=== PATIENT | female | born 1940 | race Caucasian/White ===

== ENCOUNTER 2016-10-17 13:34 | Inpatient (IN) | payer MEDICARE ==
[~2016-10-17] VITALS: Ht 165.1 cm; Wt 74.4 kg
[~2016-10-17 13:34] MED LIST: AMLODIPINE BESYL5 MG PO; ANUSOL1 EACH R; ARTHRITIS MED PO; ASPIRIN81 M1 PO; ATIVAN1 MG PO; BRILINTA90 M1 PO; CLARITIN10 MG PO; D-1000 185 MG-11 TAB PO; DOXYCYCLINE HY100 M5 PO; FAMOTIDINE20 M1 PO; Flovent 220 M220 MCG INH; LIPITOR40 MG PO; LISINOPRIL10 MG PO; LISINOPRIL2.5 MG PO; MECLIZINE HCL25 M2 PO; MEDROL DOSEPAK4 MG PO; MELOXICAM7.5 MG PO; NEXIUM20 MG PO; NITROLINGUAL NAS; OMEPRAZOLE20 M2 PO; OXYBUTYNIN CHLOR5 M1 PO; PEPCID AC10 M1 PO; PEPCID20 MG PO; PHARMASSURE FO0.4 MG PO; PRILOSEC20 M1 PO; ROBITUSSIN; THERA TABS1 TAB PO; TOPROL XL25 MG PO; TRAMADOL HCL50 MG PO; TYLENOL COLD &1 PDR; VENTOLIN H0.09 MG/AC INH; ZOFRAN ODT4 MG PO
[2016-10-17 13:39] VITALS: BP 195/61
[2016-10-17] MEDS ORDERED: OMEPRAZOLE D/R20 MG PO (13:43)
[2016-10-17 14:24] VITALS: BP 157/70
[2016-10-17 14:25] LABS: BASO # 0.1 10*3/uL (0.0-0.1); BASO % 0.8 % (0.0-1.0); EOS # 0.1 10*3/uL (0.0-0.4); EOS % 1.8 % (1.0-4.0); HEMOGLOBIN 12.5 g/dl (12.0-16.0); LYMPH # 1.8 10*3/uL (1.3-4.4); LYMPH % 29.7 % (27.0-41.0); MEAN CELL VOLUME 90.9 fl (81.0-99.0); MEAN CORPUSCULAR HGB 29.9 pg (27.0-31.0); MEAN CORPUSCULAR HGB CONC 32.9 g/dl (33.0-37.0); MEAN PLATELET VOLUME 10.2 fl (9.6-12.3); MONO # 0.5 10*3/uL (0.1-1.0); MONO % 8.1 % (3.0-9.0); NEUT # 3.6 10*3/uL (2.3-7.9); NEUT % 59.4 % (47.0-73.0); PLATELET COUNT AUTOMATED 251 10*3/uL (130-400); RED BLOOD COUNT 4.18 10*6/uL (4.10-5.10); RED CELL DISTRI WIDTH 13.9 % (0-14.5)
[2016-10-17 14:41] LABS: ALBUMIN 3.4 gm/dl (3.1-4.5); ALKALINE PHOSPHATASE 213 U/L (45-117); BILIRUBIN, TOTAL 0.4 mg/dl (0.2-1.0); BUN 10 mg/dl (7-24); CARBON DIOXIDE 27 mmol/L (21-32); CHLORIDE 108 mmol/L (98-107); EST GLOM FILT AFRICAN AMERICAN > 60 ml/min; GLUCOSE 100 mg/dL (65-99); POTASSIUM 4.1 mmol/L (3.5-5.1); SGOT/AST 20 IU/L (3-35); SGPT/ALT 16 U/L (12-78); SODIUM 146 mmol/L (136-145); TOTAL PROTEIN 6.8 gm/dL (6.4-8.2)
[2016-10-17 14:42] LABS: TROPONIN I < 0.015 ng/ml (<0.045)
[2016-10-17 14:55] VITALS: BP 152/73
[2016-10-17 15:05] LABS: PROTHROMBIN TIME 10.9 SECONDS (9.0-12.4)
[2016-10-17 16:21] LABS: LA>2 REFLEX 2 HR DRAW NOW
[2016-10-17 19:00] LABS: CKMB 1.2 ng/ml (0.5-3.6); CPK 60 U/L (26-192)
[2016-10-17 19:03] LABS: TROPONIN I < 0.015 ng/ml (<0.045)
[2016-10-17 20:00] VITALS: BP 133/54
[2016-10-18] VITALS: BP 143/54
[2016-10-18 00:31] LABS: CKMB 0.9 ng/ml (0.5-3.6); CPK 58 U/L (26-192)
[2016-10-18 00:33] LABS: TROPONIN I < 0.015 ng/ml (<0.045)
[2016-10-18 06:14] LABS: BASO # 0.1 10*3/uL (0.0-0.1); BASO % 0.8 % (0.0-1.0); EOS # 0.2 10*3/uL (0.0-0.4); EOS % 2.6 % (1.0-4.0); HEMATOCRIT 34.7 % (37.0-47.0); HEMOGLOBIN 11.3 g/dl (12.0-16.0); LYMPH # 1.8 10*3/uL (1.3-4.4); LYMPH % 29.5 % (27.0-41.0); MEAN CELL VOLUME 90.8 fl (81.0-99.0); MEAN CORPUSCULAR HGB 29.6 pg (27.0-31.0); MEAN CORPUSCULAR HGB CONC 32.6 g/dl (33.0-37.0); MEAN PLATELET VOLUME 9.7 fl (9.6-12.3); MONO # 0.5 10*3/uL (0.1-1.0); MONO % 8.5 % (3.0-9.0); NEUT # 3.7 10*3/uL (2.3-7.9); NEUT % 58.4 % (47.0-73.0); PLATELET COUNT AUTOMATED 219 10*3/uL (130-400); RED BLOOD COUNT 3.82 10*6/uL (4.10-5.10); RED CELL DISTRI WIDTH 13.9 % (0-14.5); WHITE BLOOD COUNT 6.2 10*3/uL (4.8-10.8)
[2016-10-18 06:26] LABS: CPK 55 U/L (26-192)
[2016-10-18 06:39] LABS: TROPONIN I < 0.015 ng/ml (<0.045)
[2016-10-18 06:44] LABS: ALBUMIN 2.9 gm/dl (3.1-4.5); BILIRUBIN, TOTAL 0.4 mg/dl (0.2-1.0); BUN 7 mg/dl (7-24); CARBON DIOXIDE 28 mmol/L (21-32); CHLORIDE 113 mmol/L (98-107); CHOLESTEROL 140 mg/dL (<200); EST GLOM FILT AFRICAN AMERICAN > 60 ml/min; GLUCOSE 81 mg/dL (65-99); PHOSPHOROUS 2.8 mg/dL (2.5-4.9); SGOT/AST 16 IU/L (3-35); SGPT/ALT 16 U/L (12-78); SODIUM 146 mmol/L (136-145); TRIGLYCERIDES 95 mg/dl (<150); VLDL CHOLESTEROL 19 mg/dL (6-40)
[2016-10-18 06:51] LABS: ALKALINE PHOSPHATASE 182 U/L (45-117); FREE T4 1.16 ng/dl (0.76-1.46); HDL CHOLESTEROL 45 mg/dl (40-60); LDL CHOLESTEROL 76 mg/dL (9-159); THYROID STIM HORMONE (HS) 0.904 uIU/ml (0.358-4.75); TOTAL PROTEIN 5.8 gm/dL (6.4-8.2)
[2016-10-18 07:35] LABS: FOLIC ACID 19.85 ng/mL (>5.38); VITAMIN D, 25-HYDROXY 35.6 ng/mL (30-100)
[2016-10-18 08:00] VITALS: BP 176/60
[2016-10-18] MEDS ORDERED: VIBRAMYCIN100 MG PO (10:30)
== END 2016-10-18 12:22 | disposition home or self-care (01) | DRG 871 ==
LOC: ED 13:34 → EDHOLD 15:15 → 4E 15:32
PROVIDERS: Emergency Medicine; Internal Medicine
DX: A41.9 Sepsis, unspecified organism (principal); J18.9 Pneumonia, unspecified organism; E44.0 Moderate protein-calorie malnutrition; E87.0 Hyperosmolality and hypernatremia; D64.9 Anemia, unspecified; I10 Essential (primary) hypertension; F41.9 Anxiety disorder, unspecified; I25.10 Atherosclerotic heart disease of native coronary artery without angina pectoris; F32.9 Major depressive disorder, single episode, unspecified; E78.5 Hyperlipidemia, unspecified; I25.2 Old myocardial infarction; Z95.5 Presence of coronary angioplasty implant and graft; Z87.891 Personal history of nicotine dependence; Z80.1 Family history of malignant neoplasm of trachea, bronchus and lung; Z88.1 Allergy status to other antibiotic agents; Z88.2 Allergy status to sulfonamides; Z68.27 Body mass index [BMI] 27.0-27.9, adult

== ENCOUNTER 2017-04-11 17:41 | Inpatient (IN) | payer MEDICARE ==
[~2017-04-11] VITALS: Ht 165.1 cm; Wt 72.3 kg
--- NOTE | ~2017-04-11 | CON ---
[place], [place] REPORT OF CONSULTATION NAME: ANTONETTE NAVARRETE UNIT #: [id number] ROOM: 411 DOCTOR: DOMO VERDUZCO MD BIRTHDATE: [birth year] DOS: 04/12/2017 HISTORY OF PRESENT ILLNESS: This is a 76-year-old -[place] woman with a history of coronary artery disease. She had presented with unstable angina in April of last year and 2 or 3 stents were deployed successfully. LV function was fine. She also has COPD and depression, cataract and also had acute vertigo and was admitted to this hospital in September. She has never had had a stroke, heart failure, diabetes mellitus, cancer or kidney problems. She quit smoking last year. She was doing fine yesterday. Later in the day, she developed dizziness, spinning sensation, as if she was going around and at that time, she developed quite a bit of nausea and all was at the verge of vomiting. She had some ringing in the ears and also became clammy. She sat down and symptoms abated. When she started moving around, they came back and she decided to come to the Emergency Department for further evaluation. She had pretty much the same symptoms in September when she also vomited. At that time, Dr. Tang had prescribed meclizine to be used as needed, which she did not use yesterday. She has not had any chest pain, palpitations, any breathing difficulty, swelling of the lower extremities or pain in the legs. She does not smoke now. She lives with her at home and is a reasonably active lady. HOME MEDICATIONS: Include sublingual nitroglycerin p.r.n., which she has not used, aspirin 81 mg daily, clopidogrel 75 mg daily, Atrovent mg at bedtime, lisinopril 2.5 mg daily, lorazepam 1 mg half a tablet q. 8 h. p.r.n. and omeprazole 20 mg daily and oxybutynin 5 mg b.i.d. PHYSICAL EXAMINATION: GENERAL: The patient is very pleasant, alert, and oriented. She is afebrile. There is no anemia, cyanosis, or jaundice. There is no thyromegaly or finger clubbing. VITAL SIGNS: Pulse is 50 and regular, blood pressure 144/50. NECK: JVP is normal. AJR is negative. There are faint bruits in the neck. CARDIOVASCULAR: Cardiac auscultation is unremarkable. There is no cardiomegaly. EXTREMITIES: Pedal pulses are palpable, but seems to be of smaller volume. No edema in the lower extremities. RESPIRATORY: She is not tachypneic. Percussion note is normal. Auscultation revealed modestly reduced breath sounds bilaterally with a few adventitious sounds over the lower two-thirds of lung smith. ABDOMEN: Supple, nontender. No bruits or pulsatile masses. DIAGNOSTIC STUDIES: An ECG showed sinus bradycardia, rate at 48 beats per minute. LABORATORY STUDIES: Essentially unremarkable with normal troponin I levels. IMPRESSION: 1. Acute vertigo with nausea and ringing in the ears. This has pretty much [place], [place] REPORT OF CONSULTATION NAME: ANTONETTE NAVARRETE UNIT #: [id number] ROOM: 411 DOCTOR: DOMO VERDUZCO MD BIRTHDATE: [birth year] resolved. This is her second episode and I have asked her to take meclizine as soon as she develops symptoms and that she does not have to come back to the hospital for similar symptoms unless they become somewhat unbearable. Of course, if she has any cardiac symptoms, she should show up in the Emergency Department. 2. Coronary artery disease. This is asymptomatic and requires no further workup. I discussed this with the resident. Sinus bradycardia is present and that she is not on any medications to affect her heart rate. It is asymptomatic. It is highly likely that her sinoatrial node is somewhat diseased. I thank you for this consult. DOMO VERDUZCO MD CM:CONSTR:REPORT OF CONSULTATION 1217 04/13/17 0658 interface
[~2017-04-11 17:41] MED LIST changes: +OMEPRAZOLE D/R20 MG PO; +VIBRAMYCIN100 MG PO
[2017-04-11 17:48] VITALS: BP 177/62
[2017-04-11 18:19] LABS: BASO % 0.6 % (0.0-1.0); EOS # 0.2 10*3/uL (0.0-0.4); EOS % 2.4 % (1.0-4.0); HEMATOCRIT 39.7 % (37.0-47.0); HEMOGLOBIN 12.5 g/dl (12.0-16.0); LYMPH # 2.7 10*3/uL (1.3-4.4); MEAN CELL VOLUME 88.6 fl (81.0-99.0); MEAN CORPUSCULAR HGB 27.9 pg (27.0-31.0); MEAN CORPUSCULAR HGB CONC 31.5 g/dl (33.0-37.0); MEAN PLATELET VOLUME 9.7 fl (9.6-12.3); MONO # 0.6 10*3/uL (0.1-1.0); MONO % 8.7 % (3.0-9.0); NEUT # 3.5 10*3/uL (2.3-7.9); NEUT % 49.9 % (47.0-73.0); PLATELET COUNT AUTOMATED 258 10*3/uL (130-400); RED BLOOD COUNT 4.48 10*6/uL (4.10-5.10); RED CELL DISTRI WIDTH 14.4 % (0-14.5)
[2017-04-11 18:29] LABS: ACT PARTIAL THROMBO TIME 24.1 SECONDS (20.8-31.5)
[2017-04-11 18:30] VITALS: BP 178/72
[2017-04-11 18:33] LABS: ALBUMIN 3.2 gm/dl (3.1-4.5); ALKALINE PHOSPHATASE 229 U/L (45-117); BUN 11 mg/dl (7-24); CHLORIDE 110 mmol/L (98-107); CREATININE 0.73 mg/dL (0.55-1.02); LIPASE 174 U/L (73-393); MAGNESIUM 2.3 mg/dL (1.5-2.1); POTASSIUM 4.2 mmol/L (3.5-5.1); SGOT/AST 14 IU/L (3-35); SGPT/ALT 15 U/L (12-78); SODIUM 145 mmol/L (136-145); TOTAL PROTEIN 6.9 gm/dL (6.4-8.2)
[2017-04-11 18:38] LABS: TROPONIN I < 0.015 ng/ml (<0.045)
[2017-04-11 18:46] VITALS: BP 182/74
[2017-04-11 18:48] LABS: BILIRUBIN NEGATIVE (NEGATIVE); BLOOD NEGATIVE (NEGATIVE); CLARITY CLEAR (CLEAR); COLOR YELLOW (YELLOW); GLUCOSE NEGATIVE (NEGATIVE); KETONE NEGATIVE (NEGATIVE); LEUKO ESTERASE TRACE (NEGATIVE); NITRITE NEGATIVE (NEGATIVE); SPECIFIC GRAVITY <= 1.005 (1.005-1.030); UROBILINOGEN 0.2 E.U./dl (0.2-1.0)
[2017-04-11 19:03] LABS: BACTERIA TRACE; EPITHELIAL CELLS 25-30; RBC 0-2 rbc/hpf (0-2); WBC 0-2 wbc/hpf (0-5)
[2017-04-11 19:27] VITALS: BP 129/53
--- NOTE | 2017-04-11 20:50 | NUR ---
report given to andrés
[2017-04-11 21:00] VITALS: BP 169/55
--- NOTE | 2017-04-11 21:00 | NUR ---
A 76 YO FEMALE, admitted to , under the services of LAURA Bacon DO with a diagnosis of DIZZINESS, BRADYCARDIA. Chief complaint is DIZZINESS. Patient arrived via ambulatory from ER. Monitor applied. Initial assessment completed. Vital signs taken and recorded. LAURA BACON DO notified of admission to the unit. Orders received. See assessment for past medical history, medications and allergies. Patient and/or family oriented to unit. [facility] visitation policy reviewed. Clothing/patient valuable form completed. MEDLIST REVIEWED AND UPDATED SCOOBY RODRIGUEZ
--- NOTE | 2017-04-11 21:35 | NUR ---
DR. MTZ NOTIFIED OF NEW ADMIT AND MED REC UPDATED. N.O. RCVD FOR ECHO IN AM AND REGULAR DIET.
--- NOTE | 2017-04-11 21:42 | NUR ---
DR. VERDUZCO NOTIFIED OF CONSULT. HE WILL SEE PT IN THE MORNING.
[2017-04-12] VITALS: BP 161/61
[2017-04-12 03:14] LABS: BASO % 0.6 % (0.0-1.0); EOS # 0.1 10*3/uL (0.0-0.4); HEMATOCRIT 34.6 % (37.0-47.0); LYMPH # 2.7 10*3/uL (1.3-4.4); LYMPH % 38.2 % (27.0-41.0); MEAN CELL VOLUME 88.9 fl (81.0-99.0); MEAN CORPUSCULAR HGB 28.3 pg (27.0-31.0); MEAN CORPUSCULAR HGB CONC 31.8 g/dl (33.0-37.0); MEAN PLATELET VOLUME 9.4 fl (9.6-12.3); MONO # 0.5 10*3/uL (0.1-1.0); MONO % 7.1 % (3.0-9.0); NEUT # 3.6 10*3/uL (2.3-7.9); NEUT % 51.8 % (47.0-73.0); PLATELET COUNT AUTOMATED 206 10*3/uL (130-400); RED BLOOD COUNT 3.89 10*6/uL (4.10-5.10); RED CELL DISTRI WIDTH 14.5 % (0-14.5)
[2017-04-12 03:33] LABS: ALBUMIN 2.6 gm/dl (3.1-4.5); ALKALINE PHOSPHATASE 188 U/L (45-117); BUN 10 mg/dl (7-24); CHLORIDE 112 mmol/L (98-107); CHOLESTEROL 110 mg/dL (<200); CREATININE 0.74 mg/dL (0.55-1.02); HDL CHOLESTEROL 36 mg/dl (40-60); LDL CHOLESTEROL 53 mg/dL (9-159); MAGNESIUM 2.2 mg/dL (1.5-2.1); PHOSPHOROUS 3.7 mg/dL (2.5-4.9); POTASSIUM 4.3 mmol/L (3.5-5.1); SGOT/AST 10 IU/L (3-35); SGPT/ALT 13 U/L (12-78); SODIUM 147 mmol/L (136-145); TOTAL PROTEIN 5.6 gm/dL (6.4-8.2); TRIGLYCERIDES 105 mg/dl (<150); VLDL CHOLESTEROL 21 mg/dL (6-40)
[2017-04-12 03:34] LABS: FREE T4 1.04 ng/dl (0.76-1.46)
[2017-04-12 03:39] LABS: THYROID STIM HORMONE (HS) 0.676 uIU/ml (0.358-4.75)
--- NOTE | 2017-04-12 03:41 | NUR ---
DR. MTZ NOTIFIED OF PT NEED FOR PAIN MED. N.O. RCVD FOR TYLENOL 500 MG PO EVERY 4 HOURS PRN FOR PAIN. NOTIFIED OF HR SUSTAINING IN 40'S. IVF INFUSING W/OUT DIFF.
[2017-04-12 03:49] LABS: VITAMIN D, 25-HYDROXY 34.7 ng/mL (30-100)
--- NOTE | 2017-04-12 05:00 | NUR ---
PT STATES THAT TYLENOL WAS EFFECTIVE FOR PAIN RELIEF FOR A SHORT WHILE. STATES THAT H/A IS STARTING TO RETURN.
[2017-04-12 08:00] VITALS: BP 144/50; BP 170/70
--- NOTE | 2017-04-12 08:30 | NUR ---
Etcher Enameling in to talk to patient. Patient states lives at HOME with HER . There are 0 steps in the home. Physician: DR STEWART Pharmacy: [facility] health services: NONE Patient's level of ADLs: INDEPENDENT Patient has working utilities: YES DME: NONE Follow-up physician's appointment after d/c: WILL BE MADE PRIOR TO DC Does patient want to access PORTAL?: Discharge plan HOME. NELLY CANCINO DENIES ANY DC NEEDS
[2017-04-12] MEDS ORDERED: PLAVIX75 M1 PO (10:41)
[2017-04-12] MEDS ORDERED: OMEPRAZOLE D/R20 MG PO (10:41)
[2017-04-12 12:00] VITALS: BP 142/52
[2017-04-12] MEDS ORDERED: MECLIZINE HCL25 M2 PO (12:55)
--- NOTE | 2017-04-12 14:55 | NUR ---
[facility] Discharge instructions reviewed with patient/family. Patient receptive and verbalizes understanding. Follow-up care arranged. Written instructions given to patient/family. BRIAN LOMAS
== END 2017-04-12 14:55 | disposition home or self-care (01) | DRG 304 ==
LOC: ED 17:41 → EDHOLD 19:48 → 4E 19:48
PROVIDERS: Emergency Medicine; Hospitalist; ADMIT Internal Medicine
DX: I16.0 Hypertensive urgency (principal); E43 Unspecified severe protein-calorie malnutrition; E87.0 Hyperosmolality and hypernatremia; R42 Dizziness and giddiness; J44.9 Chronic obstructive pulmonary disease, unspecified; R00.1 Bradycardia, unspecified; D64.9 Anemia, unspecified; E78.5 Hyperlipidemia, unspecified; E66.3 Overweight; E87.8 Other disorders of electrolyte and fluid balance, not elsewhere classified; E83.41 Hypermagnesemia; R51 Headache; I25.10 Atherosclerotic heart disease of native coronary artery without angina pectoris; K21.9 Gastro-esophageal reflux disease without esophagitis; F41.9 Anxiety disorder, unspecified; F32.9 Major depressive disorder, single episode, unspecified; Z87.891 Personal history of nicotine dependence; Z98.49 Cataract extraction status, unspecified eye; Z79.82 Long term (current) use of aspirin; Z95.5 Presence of coronary angioplasty implant and graft; Z79.899 Other long term (current) drug therapy; Z88.2 Allergy status to sulfonamides; Z88.1 Allergy status to other antibiotic agents; Z80.1 Family history of malignant neoplasm of trachea, bronchus and lung; Z82.49 Family history of ischemic heart disease and other diseases of the circulatory system; Z68.26 Body mass index [BMI] 26.0-26.9, adult

== ENCOUNTER → 2017-05-31 | Outpatient (CLI) | payer MEDICARE ==
[~2017-05-31] MED LIST changes: +PLAVIX75 M1 PO
== END | disposition home or self-care (01) ==
LOC: RAD 10:25
DX: M19.012 Primary osteoarthritis, left shoulder (principal); G89.29 Other chronic pain

== ENCOUNTER → 2017-11-17 | Outpatient (CLI) | payer MEDICARE | END | disposition home or self-care (01) | LOC: RAD 14:10 | DX: J90 Pleural effusion, not elsewhere classified (principal); R09.89 Other specified symptoms and signs involving the circulatory and respiratory systems ==

== ENCOUNTER → 2017-12-30 | Outpatient (CLI) | payer MEDICARE ==
[~2017-12-30] MED LIST changes: +LOTRISONE 0.05%45 GM T; +VISTARIL25 MG PO
== END | disposition home or self-care (01) ==
LOC: CT 10:00
DX: I10 Essential (primary) hypertension (principal); H53.8 Other visual disturbances; R42 Dizziness and giddiness; R11.0 Nausea

== ENCOUNTER → 2018-04-18 | Outpatient (CLI) | payer MEDICARE ==
[2018-04-18 13:41] LABS: BASO # 0.1 10*3/uL (0.0-0.1); BASO % 0.6 % (0.0-1.0); EOS # 0.3 10*3/uL (0.0-0.4); EOS % 3.3 % (1.0-4.0); HEMOGLOBIN 12.7 g/dl (12.0-16.0); LYMPH # 2.2 10*3/uL (1.3-4.4); LYMPH % 26.9 % (27.0-41.0); MEAN CELL VOLUME 91.3 fl (81.0-99.0); MEAN CORPUSCULAR HGB CONC 31.8 g/dl (33.0-37.0); MEAN PLATELET VOLUME 9.7 fl (9.6-12.3); MONO # 0.7 10*3/uL (0.1-1.0); MONO % 7.9 % (3.0-9.0); NEUT # 5.1 10*3/uL (2.3-7.9); NEUT % 60.9 % (47.0-73.0); PLATELET COUNT AUTOMATED 249 10*3/uL (130-400); RED BLOOD COUNT 4.38 10*6/uL (4.10-5.10); RED CELL DISTRI WIDTH 14.3 % (0-14.5); WHITE BLOOD COUNT 8.3 10*3/uL (4.8-10.8)
[2018-04-18 14:17] LABS: ALBUMIN 3.2 gm/dl (3.1-4.5); ALKALINE PHOSPHATASE 191 U/L (45-117); BUN 13 mg/dl (7-24); CHLORIDE 107 mmol/L (98-107); POTASSIUM 4.3 mmol/L (3.5-5.1); SGOT/AST 11 IU/L (3-35); SGPT/ALT 21 U/L (12-78); SODIUM 143 mmol/L (136-145); TOTAL PROTEIN 6.9 gm/dL (6.4-8.2)
[2018-04-18 14:23] LABS: THYROID STIM HORMONE (HS) 0.604 uIU/ml (0.358-4.75)
== END | disposition home or self-care (01) ==
LOC: LAB 13:03
PROVIDERS: Nurse Practitioner Family
DX: L29.9 Pruritus, unspecified (principal)

== ENCOUNTER → 2019-03-15 | Day surgery (SDC) | payer MEDICARE ==
[~2019-03-15] VITALS: Ht 165.1 cm; Wt 88.5 kg
[~2019-03-15] MED LIST changes: +VITAMIN C500 M4 PO; +VITAMIN D250 MCG PO
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
[2019-03-15 09:17] VITALS: BP 183/66
[2019-03-15 10:47] VITALS: BP 146/55
[2019-03-15 11:00] VITALS: BP 163/60
[2019-03-15 11:12] VITALS: BP 167/56
== END | disposition home or self-care (01) ==
LOC: SDC 03-10 11:00
DX: K63.5 Polyp of colon (principal); K62.5 Hemorrhage of anus and rectum; K62.89 Other specified diseases of anus and rectum; K57.30 Diverticulosis of large intestine without perforation or abscess without bleeding; E11.9 Type 2 diabetes mellitus without complications; I10 Essential (primary) hypertension; I25.10 Atherosclerotic heart disease of native coronary artery without angina pectoris; K21.9 Gastro-esophageal reflux disease without esophagitis; F41.9 Anxiety disorder, unspecified; M19.90 Unspecified osteoarthritis, unspecified site; E78.5 Hyperlipidemia, unspecified; I25.2 Old myocardial infarction; Z88.2 Allergy status to sulfonamides; Z98.890 Other specified postprocedural states; Z79.899 Other long term (current) drug therapy; Z88.8 Allergy status to other drugs, medicaments and biological substances; Z83.2 Family history of diseases of the blood and blood-forming organs and certain disorders involving the immune mechanism; Z82.49 Family history of ischemic heart disease and other diseases of the circulatory system

== ENCOUNTER → 2020-06-01 | Outpatient (CLI) | payer OTHER ==
[2020-06-01 09:17] LABS: BASO # 0.1 10*3/uL (0.0-0.1); BASO % 0.8 % (0.0-1.0); EOS # 0.4 10*3/uL (0.0-0.4); EOS % 4.9 % (1.0-4.0); HEMATOCRIT 42.8 % (37.0-47.0); LYMPH # 2.1 10*3/uL (1.3-4.4); LYMPH % 28.6 % (27.0-41.0); MEAN CELL VOLUME 90.3 fl (81.0-99.0); MEAN CORPUSCULAR HGB 27.8 pg (27.0-31.0); MEAN CORPUSCULAR HGB CONC 30.8 g/dl (33.0-37.0); MEAN PLATELET VOLUME 10.1 fl (9.6-12.3); MONO # 0.6 10*3/uL (0.1-1.0); MONO % 8.7 % (3.0-9.0); NEUT # 4.1 10*3/uL (2.3-7.9); NEUT % 56.7 % (47.0-73.0); PLATELET COUNT AUTOMATED 269 10*3/uL (130-400); RED BLOOD COUNT 4.74 10*6/uL (4.10-5.10); WHITE BLOOD COUNT 7.3 10*3/uL (4.8-10.8)
[2020-06-01 09:46] LABS: ALBUMIN 3.4 gm/dl (3.1-4.5); ALKALINE PHOSPHATASE 220 U/L (45-117); BUN 10 mg/dl (7-24); CHLORIDE 109 mmol/L (98-107); CHOLESTEROL 144 mg/dL (<200); CREATININE 0.73 mg/dL (0.55-1.02); HDL CHOLESTEROL 52 mg/dl (40-60); LDL CHOLESTEROL 69 mg/dL (9-159); POTASSIUM 4.1 mmol/L (3.5-5.1); SGOT/AST 17 IU/L (3-35); SGPT/ALT 18 U/L (12-78); SODIUM 144 mmol/L (136-145); TRIGLYCERIDES 113 mg/dl (<150); VLDL CHOLESTEROL 23 mg/dL (6-40)
[2020-06-01 10:45] LABS: VITAMIN D, 25-HYDROXY 35.8 ng/mL (30-100)
== END | disposition home or self-care (01) ==
LOC: LAB 08:15
PROVIDERS: ATTEND Student in an Organized Health Care Education/Training Program
DX: I25.10 Atherosclerotic heart disease of native coronary artery without angina pectoris (principal); E55.9 Vitamin D deficiency, unspecified; E78.5 Hyperlipidemia, unspecified; Z01.89 Encounter for other specified special examinations; Z79.899 Other long term (current) drug therapy

== ENCOUNTER → 2020-09-27 | Outpatient (CLI) | payer OTHER ==
[~2020-09-27] MED LIST changes: +CYCLOBENZAPRINE5 M3 PO
== END | disposition home or self-care (01) ==
LOC: RAD 10:06
PROVIDERS: ATTEND Family Medicine
DX: M47.816 Spondylosis without myelopathy or radiculopathy, lumbar region (principal); M51.36 Other intervertebral disc degeneration, lumbar region; M54.41 Lumbago with sciatica, right side; M54.42 Lumbago with sciatica, left side; G89.29 Other chronic pain

== ENCOUNTER → 2020-10-07 | Outpatient (CLI) | payer OTHER | END | disposition home or self-care (01) | LOC: RAD 10:00 | PROVIDERS: ATTEND Family Medicine | DX: Z13.820 Encounter for screening for osteoporosis (principal); M85.89 Other specified disorders of bone density and structure, multiple sites; M81.0 Age-related osteoporosis without current pathological fracture; Z78.0 Asymptomatic menopausal state ==

== ENCOUNTER 2020-10-14 12:02 | Emergency (ER) | payer OTHER ==
[~2020-10-14] VITALS: Ht 165.1 cm; Wt 77.1 kg
[~2020-10-14 12:02] MED LIST changes: -CYCLOBENZAPRINE5 M3 PO
[2020-10-14 13:07] LABS: BASO % 0.4 % (0.0-1.0); EOS # 0.2 10*3/uL (0.0-0.4); EOS % 1.8 % (1.0-4.0); HEMATOCRIT 39.7 % (37.0-47.0); LYMPH # 1.1 10*3/uL (1.3-4.4); LYMPH % 12.4 % (27.0-41.0); MEAN CELL VOLUME 89.6 fl (81.0-99.0); MEAN CORPUSCULAR HGB 28.4 pg (27.0-31.0); MEAN CORPUSCULAR HGB CONC 31.7 g/dl (33.0-37.0); MEAN PLATELET VOLUME 9.5 fl (9.6-12.3); MONO # 0.7 10*3/uL (0.1-1.0); MONO % 7.8 % (3.0-9.0); NEUT # 6.6 10*3/uL (2.3-7.9); NEUT % 77.1 % (47.0-73.0); PLATELET COUNT AUTOMATED 241 10*3/uL (130-400); RED BLOOD COUNT 4.43 10*6/uL (4.10-5.10); WHITE BLOOD COUNT 8.5 10*3/uL (4.8-10.8)
[2020-10-14 13:23] LABS: ALBUMIN 3.1 gm/dl (3.1-4.5); ALKALINE PHOSPHATASE 230 U/L (45-117); BUN 13 mg/dl (7-24); CHLORIDE 109 mmol/L (98-107); CREATININE 0.84 mg/dL (0.55-1.02); POTASSIUM 4.1 mmol/L (3.5-5.1); SGOT/AST 12 IU/L (3-35); SGPT/ALT 18 U/L (12-78); SODIUM 142 mmol/L (136-145); TOTAL PROTEIN 6.9 gm/dL (6.4-8.2)
[2020-10-14 13:26] LABS: TROPONIN I < 0.015 ng/ml (<0.045)
[2020-10-14 14:25] VITALS: BP 106/88
[2020-10-14 15:33] LABS: BILIRUBIN Negative (Negative); BLOOD Negative (Negative); CLARITY Clear (Clear); COLOR Yellow (Yellow); GLUCOSE Negative (Negative); KETONE Negative (Negative); LEUKO ESTERASE 1+ (Negative); NITRITE Negative (Negative); PH 5.5 (4.5-8.0)
[2020-10-14 16:02] LABS: BACTERIA TRACE; MUCOUS TRACE; RBC 0-2 rbc/hpf (0-2)
[2020-10-14] MEDS ORDERED: CYCLOBENZAPRINE5 M3 PO (16:21)
== END 2020-10-14 16:22 | disposition home or self-care (01) ==
LOC: ED 12:02
PROVIDERS: Nurse Practitioner
DX: M47.896 Other spondylosis, lumbar region (principal); M62.830 Muscle spasm of back; Z87.891 Personal history of nicotine dependence; Z95.5 Presence of coronary angioplasty implant and graft; Z98.890 Other specified postprocedural states; Z79.82 Long term (current) use of aspirin; Z79.899 Other long term (current) drug therapy; Z88.2 Allergy status to sulfonamides; Z88.1 Allergy status to other antibiotic agents

== ENCOUNTER 2020-11-09 07:47 | Inpatient (IN) | payer MEDICARE ==
[~2020-11-09] VITALS: Ht 165.1 cm; Wt 74.4 kg
[~2020-11-09 07:47] MED LIST changes: +CYCLOBENZAPRINE5 M3 PO; +XARE20MG PO; +ZESTRIL,PRINIVIL5 MG PO
[2020-11-09 07:54] VITALS: BP 120/48
[2020-11-09 08:39] LABS: BASO % 0.3 % (0.0-1.0); EOS # 0.3 10*3/uL (0.0-0.4); EOS % 2.5 % (1.0-4.0); HEMATOCRIT 32.5 % (37.0-47.0); LYMPH # 1.8 10*3/uL (1.3-4.4); LYMPH % 17.6 % (27.0-41.0); MEAN CORPUSCULAR HGB 28.2 pg (27.0-31.0); MEAN CORPUSCULAR HGB CONC 31.7 g/dl (33.0-37.0); MEAN PLATELET VOLUME 9.8 fl (9.6-12.3); MONO # 0.6 10*3/uL (0.1-1.0); MONO % 5.7 % (3.0-9.0); NEUT # 7.6 10*3/uL (2.3-7.9); NEUT % 73.6 % (47.0-73.0); PLATELET COUNT AUTOMATED 282 10*3/uL (130-400); RED BLOOD COUNT 3.65 10*6/uL (4.10-5.10); RED CELL DISTRI WIDTH 14.7 % (0-14.5); WHITE BLOOD COUNT 10.3 10*3/uL (4.8-10.8)
[2020-11-09 08:49] LABS: ACT PARTIAL THROMBO TIME 39.8 SECONDS (20.0-32.1); INTERNATIONAL NORM RATIO 1.3 (2.0-3.5)
[2020-11-09 08:55] LABS: ALBUMIN 2.9 gm/dl (3.1-4.5); ALKALINE PHOSPHATASE 192 U/L (45-117); BUN 22 mg/dl (7-24); CHLORIDE 111 mmol/L (98-107); CREATININE 0.68 mg/dL (0.55-1.02); SGOT/AST 11 IU/L (3-35); SGPT/ALT 16 U/L (12-78); SODIUM 143 mmol/L (136-145)
[2020-11-09 08:58] LABS: TROPONIN I < 0.015 ng/ml (<0.045)
[2020-11-09 09:19] VITALS: BP 123/75
[2020-11-09 11:00] VITALS: BP 160/58
[2020-11-09 12:00] VITALS: BP 154/51
[2020-11-09 16:00] VITALS: BP 135/63
[2020-11-09] MEDS ORDERED: COREG12.5 M1 PO (17:58)
[2020-11-09 20:00] VITALS: BP 127/49
[2020-11-10] VITALS: BP 146/47
[2020-11-10 05:54] LABS: ALBUMIN 2.5 gm/dl (3.1-4.5); BUN 17 mg/dl (7-24); CHLORIDE 113 mmol/L (98-107); CHOLESTEROL 113 mg/dL (<200); CREATININE 0.72 mg/dL (0.55-1.02); POTASSIUM 3.9 mmol/L (3.5-5.1); SGOT/AST 10 IU/L (3-35); SGPT/ALT 15 U/L (12-78); SODIUM 145 mmol/L (136-145)
[2020-11-10 05:55] LABS: ALKALINE PHOSPHATASE 172 U/L (45-117); TOTAL PROTEIN 5.4 gm/dL (6.4-8.2); TRIGLYCERIDES 138 mg/dl (<150)
[2020-11-10 06:02] LABS: FREE T4 1.04 ng/dl (0.76-1.46); LDL CHOLESTEROL 54 mg/dL (9-159); THYROID STIM HORMONE (HS) 0.611 uIU/ml (0.358-4.75)
[2020-11-10 06:10] LABS: BASO % 0.5 % (0.0-1.0); EOS # 0.2 10*3/uL (0.0-0.4); EOS % 3.5 % (1.0-4.0); HEMATOCRIT 27.9 % (37.0-47.0); LYMPH # 2.3 10*3/uL (1.3-4.4); LYMPH % 35.5 % (27.0-41.0); MEAN CELL VOLUME 90.3 fl (81.0-99.0); MEAN CORPUSCULAR HGB 28.2 pg (27.0-31.0); MEAN CORPUSCULAR HGB CONC 31.2 g/dl (33.0-37.0); MEAN PLATELET VOLUME 10.1 fl (9.6-12.3); MONO # 0.4 10*3/uL (0.1-1.0); MONO % 6.3 % (3.0-9.0); NEUT # 3.5 10*3/uL (2.3-7.9); NEUT % 53.9 % (47.0-73.0); PLATELET COUNT AUTOMATED 249 10*3/uL (130-400); RED BLOOD COUNT 3.09 10*6/uL (4.10-5.10); RED CELL DISTRI WIDTH 14.9 % (0-14.5); WHITE BLOOD COUNT 6.5 10*3/uL (4.8-10.8)
[2020-11-10 08:00] VITALS: BP 128/51
[2020-11-10 12:00] VITALS: BP 120/48
[2020-11-10 12:02] LABS: BASO % 0.6 % (0.0-1.0); EOS # 0.2 10*3/uL (0.0-0.4); EOS % 2.8 % (1.0-4.0); HEMATOCRIT 27.2 % (37.0-47.0); LYMPH # 2.3 10*3/uL (1.3-4.4); LYMPH % 33.7 % (27.0-41.0); MEAN CELL VOLUME 91.6 fl (81.0-99.0); MEAN CORPUSCULAR HGB 28.6 pg (27.0-31.0); MEAN CORPUSCULAR HGB CONC 31.3 g/dl (33.0-37.0); MEAN PLATELET VOLUME 9.7 fl (9.6-12.3); MONO # 0.6 10*3/uL (0.1-1.0); MONO % 9.4 % (3.0-9.0); NEUT # 3.6 10*3/uL (2.3-7.9); NEUT % 53.4 % (47.0-73.0); PLATELET COUNT AUTOMATED 253 10*3/uL (130-400); RED BLOOD COUNT 2.97 10*6/uL (4.10-5.10); RED CELL DISTRI WIDTH 14.8 % (0-14.5); WHITE BLOOD COUNT 6.7 10*3/uL (4.8-10.8)
[2020-11-10 16:00] VITALS: BP 135/50
[2020-11-10 20:00] VITALS: BP 113/43
[2020-11-11] VITALS: BP 130/48
[2020-11-11 06:16] LABS: BASO % 0.5 % (0.0-1.0); EOS # 0.2 10*3/uL (0.0-0.4); HEMATOCRIT 24.9 % (37.0-47.0); MEAN CELL VOLUME 91.5 fl (81.0-99.0); MEAN CORPUSCULAR HGB 28.3 pg (27.0-31.0); MEAN CORPUSCULAR HGB CONC 30.9 g/dl (33.0-37.0); MEAN PLATELET VOLUME 10.1 fl (9.6-12.3); MONO # 0.5 10*3/uL (0.1-1.0); MONO % 9.3 % (3.0-9.0); NEUT # 2.9 10*3/uL (2.3-7.9); PLATELET COUNT AUTOMATED 229 10*3/uL (130-400); RED BLOOD COUNT 2.72 10*6/uL (4.10-5.10); RED CELL DISTRI WIDTH 15.1 % (0-14.5); WHITE BLOOD COUNT 5.7 10*3/uL (4.8-10.8)
[2020-11-11 06:20] LABS: BUN 13 mg/dl (7-24); CHLORIDE 115 mmol/L (98-107); CREATININE 0.58 mg/dL (0.55-1.02); POTASSIUM 3.5 mmol/L (3.5-5.1); SODIUM 146 mmol/L (136-145)
[2020-11-11 07:56] VITALS: BP 140/44
[2020-11-11 12:00] VITALS: BP 117/48
[2020-11-11 16:00] VITALS: BP 137/52; BP 139/50
[2020-11-11 20:00] VITALS: BP 134/50
[2020-11-12] VITALS: BP 98/50
[2020-11-12 04:35] LABS: BUN 8 mg/dl (7-24); CHLORIDE 115 mmol/L (98-107); CREATININE 0.69 mg/dL (0.55-1.02); POTASSIUM 4.1 mmol/L (3.5-5.1); SODIUM 148 mmol/L (136-145)
[2020-11-12 05:53] LABS: BASO % 0.5 % (0.0-1.0); EOS # 0.3 10*3/uL (0.0-0.4); EOS % 4.9 % (1.0-4.0); HEMATOCRIT 24.4 % (37.0-47.0); LYMPH # 2.2 10*3/uL (1.3-4.4); MEAN CELL VOLUME 90.7 fl (81.0-99.0); MEAN CORPUSCULAR HGB 28.6 pg (27.0-31.0); MEAN CORPUSCULAR HGB CONC 31.6 g/dl (33.0-37.0); MEAN PLATELET VOLUME 10.2 fl (9.6-12.3); MONO # 0.6 10*3/uL (0.1-1.0); MONO % 10.2 % (3.0-9.0); NEUT # 2.6 10*3/uL (2.3-7.9); NEUT % 46.2 % (47.0-73.0); PLATELET COUNT AUTOMATED 239 10*3/uL (130-400); RED BLOOD COUNT 2.69 10*6/uL (4.10-5.10); RED CELL DISTRI WIDTH 15.1 % (0-14.5); WHITE BLOOD COUNT 5.7 10*3/uL (4.8-10.8)
[2020-11-12 06:47] VITALS: BP 154/48
[2020-11-12 08:00] VITALS: BP 120/42; BP 140/58
[2020-11-12 12:00] VITALS: BP 141/45
[2020-11-12 14:02] LABS: HEMATOCRIT 30.5 % (37.0-47.0)
[2020-11-12 16:00] VITALS: BP 166/59
[2020-11-12 20:00] VITALS: BP 159/49
[2020-11-13] VITALS (7 sets, daily range): BP systolic 122–168; BP diastolic 45–90
[2020-11-13 06:06] LABS: HEMATOCRIT 25.7 % (37.0-47.0)
[2020-11-14] VITALS: BP 146/55
[2020-11-14 05:19] LABS: BUN 11 mg/dl (7-24); CHLORIDE 113 mmol/L (98-107); POTASSIUM 3.4 mmol/L (3.5-5.1); SODIUM 144 mmol/L (136-145)
[2020-11-14 05:20] LABS: CREATININE 0.61 mg/dL (0.55-1.02)
[2020-11-14 06:17] LABS: BASO % 0.4 % (0.0-1.0); EOS # 0.3 10*3/uL (0.0-0.4); EOS % 3.5 % (1.0-4.0); HEMATOCRIT 25.2 % (37.0-47.0); LYMPH % 27.1 % (27.0-41.0); MEAN CELL VOLUME 91.3 fl (81.0-99.0); MEAN CORPUSCULAR HGB 28.6 pg (27.0-31.0); MEAN CORPUSCULAR HGB CONC 31.3 g/dl (33.0-37.0); MEAN PLATELET VOLUME 10.1 fl (9.6-12.3); MONO # 0.6 10*3/uL (0.1-1.0); MONO % 7.9 % (3.0-9.0); NEUT # 4.5 10*3/uL (2.3-7.9); NEUT % 60.8 % (47.0-73.0); PLATELET COUNT AUTOMATED 251 10*3/uL (130-400); RED BLOOD COUNT 2.76 10*6/uL (4.10-5.10); RED CELL DISTRI WIDTH 15.6 % (0-14.5); WHITE BLOOD COUNT 7.4 10*3/uL (4.8-10.8)
[2020-11-14 08:00] VITALS: BP 155/56
[2020-11-14 12:00] VITALS: BP 113/57
[2020-11-14] MEDS ORDERED: XARE20MG PO (13:30)
[2020-11-14] MEDS ORDERED: Carafate1 GM PO (13:30)
== END 2020-11-14 13:53 | disposition home or self-care (01) | DRG 378 ==
LOC: ED 07:47 → EDHOLD 09:07 → 4E 09:07
PROVIDERS: Emergency Medicine; Hospitalist; Internal Medicine; Internal Medicine Gastroenterology; ADMIT Internal Medicine; ATTEND Internal Medicine
PROC: 0DB78ZX Excision of Stomach, Pylorus, Via Natural or Artificial Opening Endoscopic, Diagnostic (ICD-10-PCS; principal; 2020-11-13)
PROC: 0DJD8ZZ Inspection of Lower Intestinal Tract, Via Natural or Artificial Opening Endoscopic (ICD-10-PCS; 2020-11-13)
DX: K29.71 Gastritis, unspecified, with bleeding (principal); E44.0 Moderate protein-calorie malnutrition; E87.0 Hyperosmolality and hypernatremia; K57.31 Diverticulosis of large intestine without perforation or abscess with bleeding; I25.10 Atherosclerotic heart disease of native coronary artery without angina pectoris; F41.9 Anxiety disorder, unspecified; F32.9 Major depressive disorder, single episode, unspecified; I10 Essential (primary) hypertension; E78.5 Hyperlipidemia, unspecified; D64.9 Anemia, unspecified; E83.41 Hypermagnesemia; I48.0 Paroxysmal atrial fibrillation; E78.00 Pure hypercholesterolemia, unspecified; E87.8 Other disorders of electrolyte and fluid balance, not elsewhere classified; R73.9 Hyperglycemia, unspecified; E87.6 Hypokalemia; Z88.1 Allergy status to other antibiotic agents; Z88.2 Allergy status to sulfonamides; I25.2 Old myocardial infarction; Z98.49 Cataract extraction status, unspecified eye; Z95.5 Presence of coronary angioplasty implant and graft; Z80.1 Family history of malignant neoplasm of trachea, bronchus and lung; Z80.51 Family history of malignant neoplasm of kidney; Z82.49 Family history of ischemic heart disease and other diseases of the circulatory system; Z68.27 Body mass index [BMI] 27.0-27.9, adult

== ENCOUNTER → 2020-12-05 | Outpatient (CLI) | payer OTHER ==
[~2020-12-05] MED LIST changes: +COREG12.5 M1 PO; +Carafate1 GM PO
[2020-12-05 15:58] LABS: BASO # 0.1 10*3/uL (0.0-0.1); BASO % 0.8 % (0.0-1.0); EOS # 0.3 10*3/uL (0.0-0.4); EOS % 3.1 % (1.0-4.0); HEMATOCRIT 34.2 % (37.0-47.0); LYMPH # 2.6 10*3/uL (1.3-4.4); LYMPH % 30.2 % (27.0-41.0); MEAN CELL VOLUME 94.5 fl (81.0-99.0); MEAN CORPUSCULAR HGB 26.8 pg (27.0-31.0); MEAN CORPUSCULAR HGB CONC 28.4 g/dl (33.0-37.0); MONO # 0.8 10*3/uL (0.1-1.0); MONO % 9.2 % (3.0-9.0); NEUT # 4.9 10*3/uL (2.3-7.9); NEUT % 56.4 % (47.0-73.0); PLATELET COUNT AUTOMATED 356 10*3/uL (130-400); RED BLOOD COUNT 3.62 10*6/uL (4.10-5.10); RED CELL DISTRI WIDTH 16.9 % (0-14.5); WHITE BLOOD COUNT 8.7 10*3/uL (4.8-10.8)
== END | disposition home or self-care (01) ==
LOC: RESCLI 00:23
PROVIDERS: Student in an Organized Health Care Education/Training Program; ATTEND Internal Medicine
DX: D64.9 Anemia, unspecified (principal); K21.9 Gastro-esophageal reflux disease without esophagitis; E78.5 Hyperlipidemia, unspecified; I10 Essential (primary) hypertension; I25.10 Atherosclerotic heart disease of native coronary artery without angina pectoris; R53.82 Chronic fatigue, unspecified; I48.0 Paroxysmal atrial fibrillation; E55.9 Vitamin D deficiency, unspecified; F17.200 Nicotine dependence, unspecified, uncomplicated; Z79.01 Long term (current) use of anticoagulants; Z79.899 Other long term (current) drug therapy; Z98.890 Other specified postprocedural states; Z95.828 Presence of other vascular implants and grafts

== ENCOUNTER 2021-04-17 12:52 | Inpatient (IN) | payer OTHER ==
[~2021-04-17] VITALS: Ht 165.1 cm; Wt 72.8 kg
[2021-04-17 12:59] VITALS: BP 211/86
[2021-04-17 13:17] LABS: BASO # 0.1 10*3/uL (0.0-0.1); BASO % 0.8 % (0.0-1.0); EOS # 0.2 10*3/uL (0.0-0.4); EOS % 3.1 % (1.0-4.0); HEMATOCRIT 36.8 % (37.0-47.0); LYMPH # 1.3 10*3/uL (1.3-4.4); LYMPH % 18.7 % (27.0-41.0); MEAN CELL VOLUME 87.6 fl (81.0-99.0); MEAN CORPUSCULAR HGB 27.4 pg (27.0-31.0); MEAN CORPUSCULAR HGB CONC 31.3 g/dl (33.0-37.0); MONO # 0.4 10*3/uL (0.1-1.0); MONO % 6.1 % (3.0-9.0); PLATELET COUNT AUTOMATED 286 10*3/uL (130-400); RED CELL DISTRI WIDTH 14.1 % (0-14.5); WHITE BLOOD COUNT 7.1 10*3/uL (4.8-10.8)
[2021-04-17 13:28] LABS: ACT PARTIAL THROMBO TIME 54.3 SECONDS (20.0-32.1); INTERNATIONAL NORM RATIO 1.5 (2.0-3.5)
[2021-04-17 13:33] LABS: ALBUMIN 3.3 gm/dl (3.1-4.5); ALKALINE PHOSPHATASE 195 U/L (45-117); BUN 11 mg/dl (7-24); CHLORIDE 108 mmol/L (98-107); POTASSIUM 4.1 mmol/L (3.5-5.1); SGOT/AST 14 IU/L (3-35); SGPT/ALT 14 U/L (12-78); SODIUM 142 mmol/L (136-145); TOTAL PROTEIN 6.7 gm/dL (6.4-8.2)
[2021-04-17 13:35] LABS: TROPONIN I < 0.015 ng/ml (<0.045)
[2021-04-17 14:06] VITALS: BP 151/58
[2021-04-17 16:42] VITALS: BP 180/66
[2021-04-17 19:46] VITALS: BP 190/70
[2021-04-18] VITALS: BP 120/45
[2021-04-18 06:05] LABS: BASO # 0.1 10*3/uL (0.0-0.1); EOS # 0.3 10*3/uL (0.0-0.4); EOS % 3.6 % (1.0-4.0); LYMPH # 1.4 10*3/uL (1.3-4.4); LYMPH % 19.9 % (27.0-41.0); MEAN CELL VOLUME 88.3 fl (81.0-99.0); MEAN CORPUSCULAR HGB 27.3 pg (27.0-31.0); MEAN CORPUSCULAR HGB CONC 30.9 g/dl (33.0-37.0); MONO # 0.6 10*3/uL (0.1-1.0); MONO % 8.5 % (3.0-9.0); NEUT # 4.6 10*3/uL (2.3-7.9); NEUT % 66.9 % (47.0-73.0); PLATELET COUNT AUTOMATED 254 10*3/uL (130-400); RED BLOOD COUNT 3.85 10*6/uL (4.10-5.10); RED CELL DISTRI WIDTH 14.4 % (0-14.5); WHITE BLOOD COUNT 6.9 10*3/uL (4.8-10.8)
[2021-04-18 06:32] LABS: ALBUMIN 2.7 gm/dl (3.1-4.5); BUN 12 mg/dl (7-24); CHLORIDE 109 mmol/L (98-107); POTASSIUM 4.2 mmol/L (3.5-5.1); SODIUM 142 mmol/L (136-145)
[2021-04-18 06:38] LABS: ALKALINE PHOSPHATASE 163 U/L (45-117); CREATININE 0.74 mg/dL (0.55-1.02); SGOT/AST 12 IU/L (3-35); SGPT/ALT 13 U/L (12-78); TOTAL PROTEIN 5.8 gm/dL (6.4-8.2)
[2021-04-18 08:00] VITALS: BP 143/50
[2021-04-18 12:00] VITALS: BP 129/54
== END 2021-04-18 17:16 | disposition home or self-care (01) | DRG 880 ==
LOC: ED 12:52 → 4E 16:26 → EDHOLD 16:26 → 4E 19:53
PROVIDERS: Emergency Medicine; Internal Medicine; ADMIT Internal Medicine; ATTEND Internal Medicine
PROC: 4A02XM4 Measurement of Cardiac Total Activity, External Approach (ICD-10-PCS; principal; 2021-04-18)
PROC: 3E073KZ Introduction of Other Diagnostic Substance into Coronary Artery, Percutaneous Approach (ICD-10-PCS; 2021-04-18)
DX: F41.9 Anxiety disorder, unspecified (principal); I16.0 Hypertensive urgency; I48.91 Unspecified atrial fibrillation; R00.1 Bradycardia, unspecified; E78.2 Mixed hyperlipidemia; I25.10 Atherosclerotic heart disease of native coronary artery without angina pectoris; E83.41 Hypermagnesemia; E87.8 Other disorders of electrolyte and fluid balance, not elsewhere classified; Z80.1 Family history of malignant neoplasm of trachea, bronchus and lung; Z88.2 Allergy status to sulfonamides; Z88.1 Allergy status to other antibiotic agents; Z79.82 Long term (current) use of aspirin; Z79.899 Other long term (current) drug therapy; Z95.5 Presence of coronary angioplasty implant and graft; Z87.891 Personal history of nicotine dependence; Z82.49 Family history of ischemic heart disease and other diseases of the circulatory system; Z68.26 Body mass index [BMI] 26.0-26.9, adult

== ENCOUNTER → 2021-11-13 | Outpatient (CLI) | payer OTHER | END | disposition home or self-care (01) | LOC: LAB 13:17 | PROVIDERS: ATTEND Specialist | DX: J30.9 Allergic rhinitis, unspecified (principal) ==

== ENCOUNTER → 2021-12-16 | Outpatient (CLI) | payer OTHER | END | disposition home or self-care (01) | LOC: RESCLI 01:31 | PROVIDERS: ATTEND Internal Medicine | DX: I48.0 Paroxysmal atrial fibrillation (principal); I11.9 Hypertensive heart disease without heart failure; D64.9 Anemia, unspecified; I10 Essential (primary) hypertension; E78.5 Hyperlipidemia, unspecified; I25.10 Atherosclerotic heart disease of native coronary artery without angina pectoris; N32.81 Overactive bladder; Z79.82 Long term (current) use of aspirin; Z88.8 Allergy status to other drugs, medicaments and biological substances; Z79.899 Other long term (current) drug therapy ==

== ENCOUNTER 2022-04-16 23:47 | Emergency (ER) | payer OTHER ==
[~2022-04-16] VITALS: Ht 162.5 cm; Wt 68.0 kg
[2022-04-17] MEDS ORDERED: PLAVIX75 M1 PO (00:04)
[2022-04-17] MEDS ORDERED: CHLORTHALIDONE25 MG PO (00:04)
[2022-04-17 01:32] VITALS: BP 210/72
== END 2022-04-17 01:40 | disposition home or self-care (01) ==
LOC: ED 23:47
DX: R04.0 Epistaxis (principal); I16.0 Hypertensive urgency; Z88.2 Allergy status to sulfonamides; Z88.1 Allergy status to other antibiotic agents; Z79.899 Other long term (current) drug therapy; Z79.82 Long term (current) use of aspirin; Z87.891 Personal history of nicotine dependence

== ENCOUNTER → 2023-01-11 | Outpatient (CLI) | payer OTHER ==
[~2023-01-11] MED LIST changes: +CHLORTHALIDONE25 MG PO; +LOSARTAN POTASS25 M1 PO; +METOPROLOL SUCC25 M2 PO; +VITAMIN D350 MCG PO; +XARELTO15 M1 PO
== END | disposition home or self-care (01) ==
LOC: RESCLI 01:32
PROVIDERS: ATTEND Internal Medicine
DX: I48.0 Paroxysmal atrial fibrillation (principal); I10 Essential (primary) hypertension; I25.10 Atherosclerotic heart disease of native coronary artery without angina pectoris; K21.9 Gastro-esophageal reflux disease without esophagitis; D64.9 Anemia, unspecified; E78.5 Hyperlipidemia, unspecified; N32.81 Overactive bladder; Z87.891 Personal history of nicotine dependence; Z98.890 Other specified postprocedural states; Z88.8 Allergy status to other drugs, medicaments and biological substances; Z95.5 Presence of coronary angioplasty implant and graft; Z79.899 Other long term (current) drug therapy

== ENCOUNTER 2023-04-29 22:03 | Emergency (ER) | payer OTHER ==
[~2023-04-29] VITALS: Ht 165.1 cm; Wt 79.0 kg
[2023-04-29 22:04] VITALS: BP 186/63
== END 2023-04-30 00:06 | disposition home or self-care (01) ==
LOC: ED 22:03
DX: M25.552 Pain in left hip (principal); I10 Essential (primary) hypertension; I48.91 Unspecified atrial fibrillation; Z96.641 Presence of right artificial hip joint; Z88.2 Allergy status to sulfonamides; Z88.1 Allergy status to other antibiotic agents; Z79.899 Other long term (current) drug therapy; Z79.82 Long term (current) use of aspirin; Z98.890 Other specified postprocedural states; Z95.5 Presence of coronary angioplasty implant and graft; Z87.891 Personal history of nicotine dependence; W18.39XA Other fall on same level, initial encounter; Y93.89 Activity, other specified; Y92.091 Bathroom in other non-institutional residence as the place of occurrence of the external cause; Y99.8 Other external cause status

== ENCOUNTER → 2023-10-14 | Outpatient (CLI) | payer MEDICARE | END | disposition home or self-care (01) | LOC: US 12:33 | PROVIDERS: ATTEND Nurse Practitioner Women's Health | DX: N83.202 Unspecified ovarian cyst, left side (principal); N94.10 Unspecified dyspareunia ==

== ENCOUNTER → 2023-10-18 | Outpatient (CLI) | payer MEDICARE | END | disposition home or self-care (01) | LOC: LAB 13:00 | PROVIDERS: ATTEND Nurse Practitioner Women's Health | DX: N94.9 Unspecified condition associated with female genital organs and menstrual cycle (principal) ==

== ENCOUNTER → 2024-02-01 | Outpatient (CLI) | payer MEDICARE ==
[~2024-02-01] MED LIST changes: +IOHEXOL 300 MG/ML 100 ML VIAL IV ONE; +IOHEXOL 300 MG/ML 100 ML VIAL ONE
== END | disposition home or self-care (01) ==
LOC: CT 00:11
PROVIDERS: ATTEND Obstetrics & Gynecology Gynecologic Oncology
DX: K76.0 Fatty (change of) liver, not elsewhere classified (principal); C56.1 Malignant neoplasm of right ovary; K57.30 Diverticulosis of large intestine without perforation or abscess without bleeding; K44.9 Diaphragmatic hernia without obstruction or gangrene

== ENCOUNTER → 2024-02-08 | Outpatient (CLI) | payer MEDICARE ==
[~2024-02-08] MED LIST changes: -IOHEXOL 300 MG/ML 100 ML VIAL IV ONE; -IOHEXOL 300 MG/ML 100 ML VIAL ONE
== END | disposition home or self-care (01) ==
LOC: RAD 16:22
PROVIDERS: ATTEND Obstetrics & Gynecology Gynecologic Oncology
DX: R06.02 Shortness of breath (principal); R05.9 Cough, unspecified; C56.9 Malignant neoplasm of unspecified ovary

== ENCOUNTER → 2024-03-06 | Outpatient (CLI) | payer MEDICARE ==
[2024-03-06 10:49] LABS: BASO % 0.7 % (0.0-1.0); EOS # 0.1 10*3/uL (0.0-0.4); EOS % 0.9 % (1.0-4.0); HEMATOCRIT 36.1 % (37.0-47.0); LYMPH # 1.9 10*3/uL (1.3-4.4); LYMPH % 36.1 % (27.0-41.0); MEAN CELL VOLUME 99.2 fl (81.0-99.0); MEAN CORPUSCULAR HGB 30.2 pg (27.0-31.0); MEAN CORPUSCULAR HGB CONC 30.5 g/dl (33.0-37.0); MEAN PLATELET VOLUME 9.5 fl (9.6-12.3); MONO # 0.6 10*3/uL (0.1-1.0); MONO % 11.2 % (3.0-9.0); NEUT # 2.7 10*3/uL (2.3-7.9); NEUT % 50.9 % (47.0-73.0); PLATELET COUNT AUTOMATED 342 10*3/uL (130-400); RED BLOOD COUNT 3.64 10*6/uL (4.10-5.10); RED CELL DISTRI WIDTH 23.9 % (0-14.5); WHITE BLOOD COUNT 5.3 10*3/uL (4.8-10.8)
[2024-03-06 11:09] LABS: ALKALINE PHOSPHATASE 171 U/L (46-116); BUN 6 mg/dl (9-23); CHLORIDE 107 mmol/L (98-107); POTASSIUM 4.3 mmol/L (3.4-5.1); SGPT/ALT 7 U/L (5-49)
== END | disposition home or self-care (01) ==
LOC: LAB 10:19
PROVIDERS: ATTEND Nurse Practitioner Family
DX: C56.9 Malignant neoplasm of unspecified ovary (principal)

== ENCOUNTER → 2024-04-11 | Outpatient (CLI) | payer MEDICARE ==
[2024-04-11 13:20] LABS: BASO % 0.3 % (0.0-1.0); EOS # 0.3 10*3/uL (0.0-0.4); HEMATOCRIT 31.9 % (37.0-47.0); LYMPH # 1.5 10*3/uL (1.3-4.4); MEAN CELL VOLUME 104.2 fl (81.0-99.0); MEAN CORPUSCULAR HGB 31.4 pg (27.0-31.0); MEAN CORPUSCULAR HGB CONC 30.1 g/dl (33.0-37.0); MEAN PLATELET VOLUME 9.1 fl (9.6-12.3); MONO # 0.7 10*3/uL (0.1-1.0); MONO % 8.1 % (3.0-9.0); NEUT # 6.2 10*3/uL (2.3-7.9); NEUT % 71.3 % (47.0-73.0); PLATELET COUNT AUTOMATED 371 10*3/uL (130-400); RED BLOOD COUNT 3.06 10*6/uL (4.10-5.10); RED CELL DISTRI WIDTH 15.6 % (0-14.5); RETICULOCYTE % 3.11 % (0.50-2.50); WHITE BLOOD COUNT 8.7 10*3/uL (4.8-10.8)
[2024-04-11 13:41] LABS: ALKALINE PHOSPHATASE 172 U/L (46-116); BUN 10 mg/dl (9-23); CHLORIDE 105 mmol/L (98-107); POTASSIUM 4.7 mmol/L (3.4-5.1); TOTAL PROTEIN 6.4 gm/dL (6.0-8.0)
[2024-04-11 13:43] LABS: SGPT/ALT < 7 U/L (5-49)
== END | disposition home or self-care (01) ==
LOC: LAB 12:52
PROVIDERS: ATTEND Nurse Practitioner Family
DX: D64.9 Anemia, unspecified (principal); C56.9 Malignant neoplasm of unspecified ovary

== ENCOUNTER → 2024-04-25 | Outpatient (CLI) | payer MEDICARE ==
[2024-04-25 12:29] LABS: HEMATOCRIT 28.9 % (37.0-47.0); MEAN CELL VOLUME 98.3 fl (81.0-99.0); MEAN CORPUSCULAR HGB CONC 32.5 g/dl (33.0-37.0); MEAN PLATELET VOLUME 9.8 fl (9.6-12.3); PLATELET COUNT AUTOMATED 234 10*3/uL (130-400); RED BLOOD COUNT 2.94 10*6/uL (4.10-5.10); RED CELL DISTRI WIDTH 13.9 % (0-14.5); WHITE BLOOD COUNT 24.1 10*3/uL (4.8-10.8)
[2024-04-25 12:53] LABS: POTASSIUM 4.3 mmol/L (3.4-5.1); TOTAL PROTEIN 6.1 gm/dL (6.0-8.0)
[2024-04-25 13:00] LABS: MANUAL DIFF REFLEX YES
[2024-04-25 13:02] LABS: BURR CELLS FEW; OVALOCYTES FEW; PLATELET SUFFICIENCY NORMAL (NORMAL); POLYCHROMASIA SLIGHT; ROULEAUX SLIGHT; TOTAL CELLS COUNTED 100 #CELLS; TOXIC GRANULATION SLIGHT; VACUOLATION OF NEUTROPHILS SLIGHT
== END | disposition home or self-care (01) ==
LOC: LAB 11:55
PROVIDERS: ATTEND Nurse Practitioner Family
DX: C56.3 Malignant neoplasm of bilateral ovaries (principal)